=== PATIENT | male | born 1965 | race Hispanic/Latino ===

== ENCOUNTER 2016-07-29 09:25 | Emergency (ER) | payer OTHER ==
[2016-07-29 09:26] VITALS: BMI 29.5
[2016-07-29 09:49] VITALS: RESP 16; O2SAT 98
--- NOTE | 2016-07-29 11:29 | ED PDOC ---
HPI: CCC, URI, Sore Throat Time Seen by Provider: 07/29/16 10:32 Chief Complaint (Nursing): Fever Chief Complaint (Provider): fever History Per: Patient History/Exam Limitations: no limitations Associated Symptoms: Fever, Cough, Sputum. denies: Chills, Sore Throat, Neck Pain, Sinus Drainage, Myalgias, Nasal Congestion, Nausea, Vomiting, Diarrhea Additional Complaint(s): 51yo M in ED for eval of fever and cough with yellow sputum since 5d was seen at this primary MD dx with URI and given benzonate for cough. pt state cough is persistent fever today peaked at 102.2 and pt is homeless. mild sore throat plueritic CP, no SOB, back or body pain, bear pain, SEQUEIRA. Past Medical History Reviewed: Historical Data, Nursing Documentation, Vital Signs Vital Signs: Last Vital Signs Temp 100.0 F H 07/29/16 09:46 Pulse 101 H 07/29/16 09:46 Resp 16 07/29/16 09:46 BP 130/83 07/29/16 09:46 Pulse Ox 98 07/29/16 11:30 - Medical History PMH: Arthritis, COPD Denies: Diabetes, Hepatitis, HIV, HTN, Seizures, Sexually Transmitted Disease - Family History Family History: States: Unknown Family Hx - Immunization History Hx Tetanus Toxoid Vaccination: No Hx Influenza Vaccination: No Hx Pneumococcal Vaccination: No - Home Medications Home Medications: Ambulatory Orders Medication Instructions Recorded Acetaminophen 325 mg PO Q6 PRN #20 tab 04/18/16 Ibuprofen [Motrin Tab] 200 mg PO Q6 PRN #20 tab 04/18/16 guaiFENesin/Dextromethorphan 1 tab PO Q6 PRN #20 tab 04/18/16 [guaiFENesin/DM 600-30 mg] Azithromycin [Zithromax] 250 mg PO DAILY #6 tab 07/29/16 - Allergies Allergies/Adverse Reactions: Allergies Allergy/AdvReac Type Severity Reaction Status Date / Time No Known Allergies Allergy Verified 09/01/15 15:56 Curb-65 Severity Score - CURB-65 Severity Score Confusion: No Bun >19mg/dl (>7mmol/L): No Respiratory Rate greater than/equal to 30: No Systolic BP <90 or Diastolic BP less than/equal 60mmHg: No Age >64: No Curb-65 Score: 0 Percentage 30-day mortality: 0.6% Review of Systems ROS Statement: Except As Marked, All Systems Reviewed And Found Negative Constitutional: Positive for: Fever Respiratory: Positive for: Cough, Sputum Physical Exam - Reviewed Nursing Documentation Reviewed: Yes Vital Signs Reviewed: Yes - Physical Exam Appears: Positive for: Well, Non-toxic, No Acute Distress Head Exam: Positive for: ATRAUMATIC, NORMAL INSPECTION, NORMOCEPHALIC Skin: Positive for: Normal Color, Warm, DRY Cardiovascular/Chest: Positive for: Regular Rate, Rhythm Respiratory: Positive for: CNT, Normal Breath Sounds Neurologic/Psych: Positive for: Alert, Oriented - ECG O2 Sat by Pulse Oximetry: 98 - Radiology X-Ray: Interpreted by Me (increased lung makerings ) - Progress ED Course And Treament: impression: viral vs bacterial chest xray r/o PNA Medical Decision Making Medical Decision Making: considering pt is homeless, will tx wqith Z-pack VS stable pt stable appearing flu test done at pmd-negative Disposition - Clinical Impression Clinical Impression: URI (upper respiratory infection) - Patient ED Disposition Is Patient to be Admitted: No Counseled Patient/Family Regarding: Studies Performed, Diagnosis, Need For Followup, Rx Given - Disposition Disposition: Routine/Home Disposition Time: 11:49 Condition: STABLE Prescriptions: Azithromycin [Zithromax] 250 mg PO DAILY #6 tab Instructions: Upper Respiratory Infection (ED)
[2016-07-29 12:19] VITALS: BP 131/77; PULSE 91; TEMP 99
--- NOTE | 2016-07-29 13:41 | RAD ---
HISTORY: cough COMPARISON: 08/02/2015. TECHNIQUE: Chest PA and lateral FINDINGS: LUNGS: Hyperinflation, manifestations of COPD. No active pulmonary disease. PLEURA: No significant pleural effusion identified. No pneumothorax apparent. CARDIOVASCULAR: Normal. OSSEOUS STRUCTURES: No significant abnormalities. VISUALIZED UPPER ABDOMEN: Normal. OTHER FINDINGS: None. IMPRESSION: No active disease. No significant interval change compared to the prior examination(s).
== END 2016-07-29 12:19 | disposition home or self-care (01) ==
LOC: H.ER 09:25
DX: J06.9 Acute upper respiratory infection, unspecified (principal); R05 Cough; J44.9 Chronic obstructive pulmonary disease, unspecified

== ENCOUNTER 2016-10-07 13:44 | Observation (INO) | payer MEDICAID, OTHER ==
[2016-10-07 13:44] VITALS: BMI 29.5
[2016-10-07 13:50] VITALS: TEMP 98.2
[2016-10-07] MEDS ORDERED: Sodium Chloride 0.9% 1,000 ML IV STA (14:06)
--- NOTE | 2016-10-07 14:11 | ED PDOC ---
HPI: Chest Pain Time Seen by Provider: 10/07/16 13:59 Chief Complaint (Nursing): Shortness Of Breath Chief Complaint (Provider): Chest Pain and Palpitations History Per: Patient History/Exam Limitations: no limitations Current Symptoms Are (Timing): Still Present Additional Complaint(s): Michael Duncan, a 51 year old male, is brought into the ED by EMS for chest pain and palpitations she developed prior to arrival. The patient reports that she has had a similar episode in the past but it resolved spontaneously. Denies dizziness and shortness of breath. On arrival to the ED patient was found to be in supraventricular tachycardia with a rate of 190. Past Medical History Reviewed: Historical Data, Nursing Documentation, Vital Signs Vital Signs: Last Vital Signs Temp 98.2 F 10/07/16 13:48 Pulse 192 H 10/07/16 13:48 Resp 16 10/07/16 13:48 BP 108/86 10/07/16 13:48 Pulse Ox 100 10/07/16 14:19 - Medical History PMH: Arthritis, COPD Denies: Diabetes, Hepatitis, HIV, HTN, Seizures, Sexually Transmitted Disease - Family History Family History: States: Unknown Family Hx - Immunization History Hx Tetanus Toxoid Vaccination: No Hx Influenza Vaccination: No Hx Pneumococcal Vaccination: No - Home Medications Home Medications: Ambulatory Orders Medication Instructions Recorded Acetaminophen 325 mg PO Q6 PRN #20 tab 04/18/16 Ibuprofen [Motrin Tab] 200 mg PO Q6 PRN #20 tab 04/18/16 guaiFENesin/Dextromethorphan 1 tab PO Q6 PRN #20 tab 04/18/16 [guaiFENesin/DM 600-30 mg] Azithromycin [Zithromax] 250 mg PO DAILY #6 tab 07/29/16 Albuterol HFA [Ventolin HFA 90 1 puff IH ASDIR #1 unit 08/12/16 mcg/actuation (8 g)] Levofloxacin [Levaquin] 500 mg PO DAILY #5 tablet 08/12/16 Prednisone 50 mg PO DAILY #5 tablet 08/12/16 - Allergies Allergies/Adverse Reactions: Allergies Allergy/AdvReac Type Severity Reaction Status Date / Time No Known Allergies Allergy Verified 10/07/16 13:48 Review of Systems Cardiovascular: Positive for: Chest Pain, Palpitations Respiratory: Negative for: Shortness of Breath Neurological: Negative for: Dizziness Physical Exam - Reviewed Nursing Documentation Reviewed: Yes Vital Signs Reviewed: Yes - Physical Exam Appears: Positive for: Non-toxic, No Acute Distress Head Exam: Positive for: ATRAUMATIC, NORMAL INSPECTION, NORMOCEPHALIC Skin: Positive for: Normal Color, Warm, Dry Eye Exam: Positive for: Normal appearance, PERRL ENT: Positive for: Normal ENT Inspection Neck: Positive for: Normal, Painless ROM, Supple Cardiovascular/Chest: Positive for: Chest Non Tender. Negative for: Tachycardia Respiratory: Positive for: Normal Breath Sounds. Negative for: Wheezing, Respiratory Distress Gastrointestinal/Abdominal: Positive for: Normal Exam, Bowel Sounds, Soft. Negative for: Tenderness Back: Positive for: Normal Inspection Extremity: Positive for: Normal ROM. Negative for: Tenderness, Deformity, Swelling Neurologic/Psych: Positive for: Alert, Oriented, Gait. Negative for: Motor/ Sensory Deficits - Laboratory Results Result Diagrams: 10/07/16 14:09 - ECG O2 Sat by Pulse Oximetry: 100 (RA) Pulse Ox Interpretation: Normal Medical Decision Making Medical Decision Makin:59 Initial Impression: 51 year old male presenting with chest pain and palpitations Initial Plan: * EKG * Comp Metabolic Panel * Drug Screen * CBC * CXR * Adenosine 6mg IVP * Adenosine 12mg IVP * Reevaluation 14:10 Upon arrival to ED patient was found to be in SVT and was therefore treat with 6mg and 12mg of adenosine IVP. Patient is currently converting to sinus rhythm. Scribe Attestation: Documented by Khadijah Stephens acting as a scribe for Drake Candelario MD. Scribsrikanth Attestation: All medical record entries made by the Scribe were at my direction and personally dictated by me. I have reviewed the chart and agree that the record accurately reflects my personal performance of the history, physical exam, medical decision making, and the department course for this patient. I have also personally directed, reviewed, and agree with the discharge instructions and disposition. Disposition - Clinical Impression Clinical Impression: SVT (supraventricular tachycardia) - Patient ED Disposition Is Patient to be Admitted: Yes - Disposition Disposition Time: 14:10 Condition: FAIR - Pt Status Changed To: Hospital Disposition Of: Observation - POA Present On Arrival: None
[2016-10-07 14:13] LABS: BASO # 0.1 K/uL (0.0-0.2); BASO % 1.7 % (0.0-2.0); EOS # 0.2 K/uL (0.0-0.7); HEMOGLOBIN 15.1 g/dL (12.0-18.0); LYMPH # 2.2 K/uL (1.0-4.3); MEAN CELL VOLUME 89.6 fl (80.0-94.0); MEAN CORPUSCULAR HEMOGLOBIN 30.2 pg (27.0-31.0); MEAN CORPUSCULAR HGB CONC 33.8 g/dL (33.0-37.0); MONO # 0.7 K/uL (0.0-0.8); MONO % 9.9 % (0.0-10.0); NEUT # 4.1 K/uL (1.8-7.0); NEUT % 55.4 % (50.0-75.0); NRBC % 0.2 % (0.0-0.0); RED CELL DISTRIBUTION WIDTH 13.8 % (11.5-14.5); WHITE BLOOD COUNT 7.5 K/uL (4.8-10.8)
[2016-10-07 14:24] LABS: ALB/GLOB RATIO 1.7 (1.0-2.1); ALT/SGPT 22 U/L (21-72); AST/SGOT 31 U/L (17-59); BLOOD UREA NITROGEN 11 mg/dl (9-20); CALCIUM 10.3 mg/dL (8.4-10.2); GFR AFRICAN-AMERICAN > 60; GFR NON-AFRICAN AMERICAN > 60
[2016-10-07 14:34] VITALS: RESP 19
[2016-10-07 16:00] VITALS: BP 132/74; PULSE 75; O2SAT 100
--- NOTE | 2016-10-07 16:02 | RAD ---
HISTORY: palpitations COMPARISON: 08/12/2016. TECHNIQUE: Chest PA and lateral FINDINGS: LUNGS: Hyperinflation, manifestations of COPD. No active pulmonary disease. PLEURA: No significant pleural effusion identified. No pneumothorax apparent. CARDIOVASCULAR: Normal. OSSEOUS STRUCTURES: No significant abnormalities. VISUALIZED UPPER ABDOMEN: Normal. OTHER FINDINGS: None. IMPRESSION: No active disease. No significant interval change compared to the prior examination(s).
--- NOTE | 2016-10-08 17:21 | CARD ---
APPROVED REPORT EKG Measurement Heart [id number] <Conclusion> Normal sinus rhythm Possible Left atrial enlargement Borderline ECG
--- NOTE | 2016-10-08 17:22 | CARD ---
APPROVED REPORT EKG Measurement Heart [id number] <Conclusion> Supraventricular tachycardia Marked ST abnormality, possible inferior subendocardial injury Marked ST abnormality, possible anterior subendocardial injury Abnormal ECG
== END 2016-10-07 16:01 | disposition left against medical advice (07) ==
LOC: H.ER 13:44 → H.ERHOLD 14:05
PROVIDERS: ADMIT Family Medicine; ATTEND Family Medicine
DX: I47.1 Supraventricular tachycardia (principal); J44.9 Chronic obstructive pulmonary disease, unspecified; M19.90 Unspecified osteoarthritis, unspecified site

== ENCOUNTER 2016-10-14 17:44 | Emergency (ER) | payer OTHER ==
[2016-10-14 17:44] VITALS: BMI 29.5
[2016-10-14 17:49] VITALS: BP 143/83; PULSE 96; RESP 20; O2SAT 97
[2016-10-14] MEDS ORDERED: Albuterol-Ipratrop 3 mg / 0.5 (3 ml) UD ONE (18:08)
[2016-10-14] MEDS ORDERED: Albuterol-Ipratrop 3 mg / 0.5 (3 ml) UD INH STA (18:22)
--- NOTE | 2016-10-14 19:24 | ED PDOC ---
HPI: CCC, URI, Sore Throat Time Seen by Provider: 10/14/16 18:06 Chief Complaint (Nursing): Upper Extremity Problem/Injury Chief Complaint (Provider): Cough/URI History Per: Patient History/Exam Limitations: no limitations Onset/Duration Of Symptoms: Days (x2) Additional Complaint(s): Patient, with a history of COPD, complains of fever and cough with white phlegm occurring for 2 days prior to arrival. He denies any chest pain or shortness of breath. He has no pertinent past surgical history. PMD: none provided Past Medical History Reviewed: Historical Data, Nursing Documentation, Vital Signs Vital Signs: Last Vital Signs Temp 100.3 F H 10/14/16 18:35 Pulse 96 H 10/14/16 17:46 Resp 20 10/14/16 17:46 BP 143/83 10/14/16 17:46 Pulse Ox 97 10/14/16 20:12 - Medical History PMH: Arthritis, COPD Denies: Diabetes, Hepatitis, HIV, HTN, Seizures, Sexually Transmitted Disease - Surgical History Surgical History: No Surg Hx - Family History Family History: States: Unknown Family Hx - Social History Current smoker - smoking cessation education provided: No Ex-Smoker (has not smoked in the last 12 months): Yes Alcohol: None Drugs: Denies - Immunization History Hx Tetanus Toxoid Vaccination: No Hx Influenza Vaccination: No Hx Pneumococcal Vaccination: No - Home Medications Home Medications: Ambulatory Orders Medication Instructions Recorded Albuterol HFA [Ventolin HFA 90 1 puff IH BID PRN #1 unit 10/14/16 mcg/actuation (8 g)] Levofloxacin [Levaquin] 750 mg PO DAILY #5 tablet 10/14/16 - Allergies Allergies/Adverse Reactions: Allergies Allergy/AdvReac Type Severity Reaction Status Date / Time No Known Allergies Allergy Verified 10/07/16 13:48 Review of Systems ROS Statement: Except As Marked, All Systems Reviewed And Found Negative Constitutional: Positive for: Fever Cardiovascular: Negative for: Chest Pain Respiratory: Positive for: Cough (with white phlegm ). Negative for: Shortness of Breath Physical Exam - Reviewed Nursing Documentation Reviewed: Yes Vital Signs Reviewed: Yes - Physical Exam Appears: Positive for: Well, Non-toxic, No Acute Distress Head Exam: Positive for: ATRAUMATIC, NORMAL INSPECTION, NORMOCEPHALIC Skin: Positive for: Normal Color, Warm, Dry Eye Exam: Positive for: Normal appearance ENT: Positive for: Normal ENT Inspection Neck: Positive for: Normal Cardiovascular/Chest: Positive for: Regular Rate, Rhythm. Negative for: Gallop , Murmur Respiratory: Positive for: Normal Breath Sounds. Negative for: Respiratory Distress - ECG O2 Sat by Pulse Oximetry: 97 (RA) Pulse Ox Interpretation: Normal Medical Decision Making Medical Decision Making: Impression: Fever and cough with white phlegm Plan: * Peak Flow Pre/Post TX * Chest Two Views (PA/LAT) [RAD] Stat * Duoneb 3 mg/0.5 mg (3 ml) UD Inh Once Stat * Levaquin 750 mg PO Stat * Motrin Tab 600 mg PO Once Stat * Tylenol 325 mg tab 650 mg PO Once Stat Chest X-Ray: Normal compared to previous, reviewed by HUMERA MCCLELLAND. Scribe Attestation: Documented by Courtney Peck, acting as a scribe for Laurita Snyder PA-C. Provider Scribe Attestation: All medical record entries made by the Scribe were at my direction and personally dictated by me. I have reviewed the chart and agree that the record accurately reflects my personal performance of the history, physical exam, medical decision making, and the department course for this patient. I have also personally directed, reviewed, and agree with the discharge instructions and disposition. Disposition - Clinical Impression Clinical Impression: Cough - Patient ED Disposition Is Patient to be Admitted: No - Disposition Referrals: Peter Ugalde MD [Staff Provider] - Disposition: Routine/Home Disposition Time: 19:23 Condition: STABLE Prescriptions: Albuterol HFA [Ventolin HFA 90 mcg/actuation (8 g)] 1 puff IH BID PRN #1 unit PRN Reason: Wheezing Levofloxacin [Levaquin] 750 mg PO DAILY #5 tablet
[2016-10-14] MEDS ORDERED: levoFLOXacin 750 MG TAB PO STA (19:29)
[2016-10-14 21:03] VITALS: TEMP 99.9
--- NOTE | 2016-10-15 09:35 | RAD ---
HISTORY: cough, fever COMPARISON: 10/07/2016. TECHNIQUE: Chest PA and lateral FINDINGS: LUNGS: The lungs are hyperinflated and there is peribronchial thickening with chronic changes in both lungs. No lobar pneumonia. PLEURA: No significant pleural effusion identified. No pneumothorax apparent. CARDIOVASCULAR: Normal. OSSEOUS STRUCTURES: No significant abnormalities. VISUALIZED UPPER ABDOMEN: Normal. OTHER FINDINGS: None. IMPRESSION: No active pulmonary disease. COPD.
== END 2016-10-14 21:07 | disposition home or self-care (01) ==
LOC: H.ER 17:44
DX: R05 Cough (principal); J44.9 Chronic obstructive pulmonary disease, unspecified

== ENCOUNTER 2016-11-07 14:15 | Emergency (ER) | payer OTHER ==
[2016-11-07 14:15] VITALS: BMI 29.5
[2016-11-07 14:38] VITALS: BP 123/77; PULSE 73; RESP 16; TEMP 98.3; O2SAT 99
--- NOTE | 2016-11-07 15:46 | ED PDOC ---
HPI: Back Time Seen by Provider: 11/07/16 14:43 Chief Complaint (Nursing): Back Pain Chief Complaint (Provider): Back Pain History Per: Patient History/Exam Limitations: no limitations Onset/Duration Of Symptoms: Hrs (started this morning, approximately 6x hours prior to arrival) Current Symptoms Are (Timing): Still Present Severity: Moderate Previous Symptoms: None Associated Symptoms: None Additional Complaint(s): 51 year old male with no pertinent medical history presents to the ED with complaints of lower back pain that started this morning (approximately 6 hours prior to arrival). He reports that yesterday he was helping his friend move heavy furniture, but denies any trauma. This morning he woke up with lower back pain, but continued to help his friend move furniture. He reports that today he was moving a heavy air conditioner unit, and about an hour later his pain pain worsened, which is what prompted his visit to the ED today. He denies having a history of back pain/problems, trauma, numbness, tingling, radiation of pain, incontinence, dysuria, hematuria, abdominal pain, nausea, and vomiting. PMD: not provided. Past Medical History Reviewed: Historical Data, Nursing Documentation, Vital Signs Vital Signs: Last Vital Signs Temp 98.3 F 11/07/16 14:36 Pulse 73 11/07/16 14:36 Resp 16 11/07/16 14:36 BP 123/77 11/07/16 14:36 Pulse Ox 99 11/07/16 14:36 - Medical History PMH: Arthritis, COPD Denies: Diabetes, Hepatitis, HIV, HTN, Seizures, Sexually Transmitted Disease - Surgical History Surgical History: No Surg Hx - Family History Family History: States: Unknown Family Hx - Social History Current smoker - smoking cessation education provided: Yes Alcohol: Other (yes) Drugs: Denies - Immunization History Hx Tetanus Toxoid Vaccination: No Hx Influenza Vaccination: No Hx Pneumococcal Vaccination: No - Home Medications Home Medications: Ambulatory Orders Medication Instructions Recorded Albuterol HFA [Ventolin HFA 90 1 puff IH BID PRN #1 unit 10/14/16 mcg/actuation (8 g)] Levofloxacin [Levaquin] 750 mg PO DAILY #5 tablet 10/14/16 Cyclobenzaprine [Cyclobenzaprine 10 mg PO Q8 PRN #30 tab 11/07/16 HCl] Naproxen [Naprosyn] 500 mg PO BID PRN #30 tab 11/07/16 - Allergies Allergies/Adverse Reactions: Allergies Allergy/AdvReac Type Severity Reaction Status Date / Time No Known Allergies Allergy Verified 10/07/16 13:48 Review of Systems Genitourinary Male: Negative for: Dysuria, Incontinence, Hematuria Musculoskeletal: Positive for: Back Pain Neurological: Negative for: Numbness (tingling) Physical Exam - Reviewed Nursing Documentation Reviewed: Yes Vital Signs Reviewed: Yes - Physical Exam Appears: Positive for: Well, Non-toxic, No Acute Distress Head Exam: Positive for: ATRAUMATIC, NORMOCEPHALIC Skin: Positive for: Normal Color, Warm, Dry. Negative for: Rash Cardiovascular/Chest: Positive for: Regular Rate, Rhythm, Chest Non Tender Respiratory: Positive for: Normal Breath Sounds. Negative for: Respiratory Distress Gastrointestinal/Abdominal: Positive for: Normal Exam, Soft. Negative for: Tenderness Back: Positive for: Normal Inspection, Muscle Spasm (bilaterally). Negative for : L CVA Tenderness, R CVA Tenderness, Vertebral Tenderness, Other (straight leg raise negative bilaterally) Neurologic/Psych: Positive for: Alert, Oriented (3x) - ECG O2 Sat by Pulse Oximetry: 99 (RA) Pulse Ox Interpretation: Normal Medical Decision Making Medical Decision Makin:43 Initial impression: 51 year old male with lower back pain. Initial plan: * toradol 15mg IM Scribe Attestation: Documented by Gladis Doherty, acting as a scribe for Tej Cornelius Provider Scribe Attestation: All medical record entries made by the Scribe were at my direction and personally dictated by me. I have reviewed the chart and agree that the record accurately reflects my personal performance of the history, physical exam, medical decision making, and the department course for this patient. I have also personally directed, reviewed, and agree with the discharge instructions and disposition. Disposition - Clinical Impression Clinical Impression: Low back pain - Patient ED Disposition Is Patient to be Admitted: No - Disposition Referrals: [facility] [Outside] Disposition Time: 15:15 Condition: STABLE Prescriptions: Cyclobenzaprine [Cyclobenzaprine HCl] 10 mg PO Q8 PRN #30 tab PRN Reason: Muscle Spasm Naproxen [Naprosyn] 500 mg PO BID PRN #30 tab PRN Reason: Pain Instructions: Acute Low Back Pain (ED) Forms: [employer] (Hebrew) Print Language: MOHAWK
== END 2016-11-07 15:35 | disposition home or self-care (01) ==
LOC: H.ER 14:15
DX: M54.5 Low back pain (principal)

== ENCOUNTER 2016-11-21 08:11 | Emergency (ER) | payer MEDICAID, OTHER ==
[2016-11-21 08:11] VITALS: BMI 29.5
[2016-11-21 08:14] VITALS: BP 132/87; PULSE 104; TEMP 97; O2SAT 97
--- NOTE | 2016-11-21 08:26 | ED PDOC ---
Lower Extremity Pain/Injury Time Seen by Provider: 11/21/16 08:19 History Per: Patient Onset/Duration Of Symptoms: Days (2) Current Symptoms Are (Timing): Still Present Severity: Mild Pain Scale Rating Of: 2 Additional Complaint(s): Right knee pain x 2 days. No trauma. Pain worse on flexion Past Medical History Vital Signs: Last Vital Signs Temp 97 F L 11/21/16 08:13 Pulse 104 H 11/21/16 08:13 Resp BP 132/87 11/21/16 08:13 Pulse Ox 97 11/21/16 08:13 - Medical History PMH: Arthritis, COPD Denies: Diabetes, Hepatitis, HIV, HTN, Seizures, Sexually Transmitted Disease - Family History Family History: States: Unknown Family Hx - Immunization History Hx Tetanus Toxoid Vaccination: No Hx Influenza Vaccination: No Hx Pneumococcal Vaccination: No - Home Medications Home Medications: Ambulatory Orders Medication Instructions Recorded Albuterol HFA [Ventolin HFA 90 1 puff IH BID PRN #1 unit 10/14/16 mcg/actuation (8 g)] Levofloxacin [Levaquin] 750 mg PO DAILY #5 tablet 10/14/16 Cyclobenzaprine [Cyclobenzaprine 10 mg PO Q8 PRN #30 tab 11/07/16 HCl] Naproxen [Naprosyn] 500 mg PO BID PRN #30 tab 11/07/16 Naproxen [Naprosyn] 500 mg PO Q12H #20 tab 11/21/16 - Allergies Allergies/Adverse Reactions: Allergies Allergy/AdvReac Type Severity Reaction Status Date / Time No Known Allergies Allergy Verified 10/07/16 13:48 Review of Systems Constitutional: Negative for: Fever Musculoskeletal: Positive for: Other (Knee pain) Skin: Negative for: Rash Neurological: Negative for: Weakness, Numbness Physical Exam - Physical Exam Appears: Positive for: Non-toxic, No Acute Distress Skin: Positive for: Normal Color, Warm, DRY Extremity: Positive for: Other (Right knee mild swelling laterally. FROM No warmth or erythema . No creptance.) - ECG O2 Sat by Pulse Oximetry: 97 Disposition - Clinical Impression Clinical Impression: Arthritis - Patient ED Disposition Is Patient to be Admitted: No Counseled Patient/Family Regarding: Studies Performed, Diagnosis, Need For Followup, Rx Given - Disposition Referrals: [facility] [Outside] Disposition: Routine/Home Disposition Time: 08:26 Condition: FAIR Prescriptions: Naproxen [Naprosyn] 500 mg PO Q12H #20 tab Instructions: Arthritis (ED)
[2016-11-21] MEDS ORDERED: Naproxen 500 MG TAB PO STA (08:27)
[2016-11-21] MEDS ORDERED: Naproxen 500 MG TAB PO ONE (08:43)
--- NOTE | 2016-11-21 13:06 | RAD ---
PROCEDURE: Right Knee Radiographs. HISTORY: Pain. No history of recent/ related trauma provided COMPARISON: 03/09/2014 FINDINGS: BONES: Normal. No fracture. JOINTS: Supraorbital joint effusions suspected. JOINT EFFUSION: None. OTHER FINDINGS: None. IMPRESSION: No acute osseous or articular abnormalities. Suprapatellar joint effusion identified. No preliminary report provided by emergency department personnel.
== END 2016-11-21 09:07 | disposition home or self-care (01) ==
LOC: H.ER 08:11
DX: M13.861 Other specified arthritis, right knee (principal)